=== PATIENT | male | born 1940 | race Caucasian/White ===

== ENCOUNTER 2020-06-03 07:28 | Day surgery (SDC) | payer MEDICARE, MEDICAID ==
[~2020-06-03] VITALS: Ht 185.4 cm; Wt 80.6 kg
[2020-06-03] MEDS ORDERED: MIDAZolam 1mg/ml 10ml vial IV ONE (07:55)
[2020-06-03] MEDS ORDERED: glycopyrrolate 0.2mg/ml inj IV ONE (07:55)
[2020-06-03] MEDS ORDERED: fentaNYL/PF 50MCG/1 ML 2ML syringe IV ONE (07:55)
[2020-06-03] MEDS ORDERED: barium sulfate 450ml oral suspension ONE (08:00)
[2020-06-03 08:02] VITALS: BP 146/88
[2020-06-03] MEDS ORDERED: ISOS30TA6 PO (08:05)
[2020-06-03] MEDS ORDERED: NITR0.4T48 SL (08:05)
[2020-06-03] MEDS ORDERED: FURO20TA4 PO (08:05)
[2020-06-03] MEDS ORDERED: HYDR-3972 PO (08:05)
[2020-06-03] MEDS ORDERED: ROSU10TA28 PO (08:12)
[2020-06-03] MEDS ORDERED: CLON1PAT15 TOP (08:12)
[2020-06-03] MEDS ORDERED: HYDR-4070 PO (08:12)
[2020-06-03] MEDS ORDERED: METO-395 PO (08:12)
[2020-06-03] MEDS ORDERED: SPIR25TA5 PO (08:12)
[2020-06-03] MEDS ORDERED: FLO0.4C PO (08:12)
[2020-06-03] MEDS ORDERED: METH5TAB2 PO (08:12)
[2020-06-03] MEDS ORDERED: CLOP75TA35 PO (08:12)
[2020-06-03] MEDS ORDERED: FENT1PAT TOP (08:12)
[2020-06-03] MEDS ORDERED: CALC0.2536 PO (08:12)
[2020-06-03] MEDS ORDERED: CYCL-1 PO (08:12)
[2020-06-03] MEDS ORDERED: GABA-530 PO (08:12)
[2020-06-03] MEDS ORDERED: AMLO5TAB16 PO (08:12)
[2020-06-03] MEDS ORDERED: ASCO500C15 PO (08:14)
[2020-06-03] MEDS ORDERED: VITA400C67 PO (08:14)
[2020-06-03] MEDS ORDERED: CHOL10002 (08:14)
[2020-06-03 08:35] LABS: BASOPHILS % (AUTO) 0.7 % (0-1); EOSINOPHILS # (AUTO) 0.1 X10'3 (0-0.9); EOSINOPHILS % (AUTO) 2.3 % (0-6); HEMATOCRIT 29.3 % (42.0-52.0); HEMOGLOBIN 9.5 g/dl (14.0-17.9); LYMPHOCYTES # (AUTO) 0.9 X10'3 (1.1-4.8); LYMPHOCYTES % (AUTO) 17.5 % (21-51); MEAN CORPUSCULAR HEMOGLOBIN 29.7 PG (27.0-31.0); MEAN CORPUSCULAR HGB CONC 32.4 g/dL (33.0-36.5); MEAN CORPUSCULAR VOLUME 91.7 FL (78-98); MEAN PLATELET VOLUME 7.9 FL (7.4-10.4); MONOCYTES # (AUTO) 0.6 X10'3 (0-0.9); MONOCYTES % (AUTO) 11.2 % (2-12); NEUTROPHILS # (AUTO) 3.5 X10'3 (1.8-7.7); NEUTROPHILS % (AUTO) 68.3 % (42-75); PLATELET COUNT 129 X10'3 (140-440); RED BLOOD COUNT 3.19 X10'6 (4.70-6.10); RED CELL DISTRIBUTION WIDTH 16.4 % (11.5-14.5); WHITE BLOOD COUNT 5.1 X10'3 (4.5-11.0)
[2020-06-03 08:41] LABS: ALBUMIN 3.9 G/DL (3.4-5.0); ANION GAP 10 (8-16); BLOOD UREA NITROGEN 73 MG/DL (7-18); BUN/CREATININE RATIO 23.2 (5.4-32.0); CALCIUM 8.6 MG/DL (8.5-10.1); CHLORIDE 103 MMOL/L (99-107); CREATININE 3.15 MG/DL (0.60-1.10); GLUCOSE 91 MG/DL (70-104); MAGNESIUM 2.5 MG/DL (1.5-2.4); POTASSIUM 4.8 MMOL/L (3.5-5.1); SODIUM 140 MMOL/L (135-145); TOTAL CARBON DIOXIDE 27.1 MMOL/L (24-32); eGFR 19 ML/MIN
[2020-06-03] MEDS ORDERED: normal saline 1000ml 1,000 ML IV SCH (09:50)
[2020-06-03 10:58] VITALS: BP 129/67
--- NOTE | 2020-06-03 11:00 | NUR ---
was unable to complete LOUISE, sending PT for barium swallow study with Dr. Roe.
--- NOTE | 2020-06-03 11:51 | NUR ---
pt left floor for barium swallow study.
--- NOTE | 2020-06-03 12:20 | NUR ---
Pt back from swallow study. Pt in restroom.
--- NOTE | 2020-06-03 12:40 | NUR ---
Contacted . No new orders given. Pt to follow up with Dr. Marie per Dr. Floyd.
== END 2020-06-03 13:05 | disposition home or self-care (01) ==
LOC: SSTAY O 07:28
PROVIDERS: ATTEND Internal Medicine Cardiovascular Disease
DX: I48.3 Typical atrial flutter (principal); K22.4 Dyskinesia of esophagus; R06.02 Shortness of breath; I10 Essential (primary) hypertension; I45.10 Unspecified right bundle-branch block
CPT/HCPCS: 36415; 74220; 80048; 83735; 85025; 85610; 93005; 93308; J2250; J3010; J7030; J3490

== ENCOUNTER 2020-07-15 09:36 | Day surgery (SDC) | payer MEDICARE, MEDICAID ==
[2020-07-15] VITALS (12 sets, daily range): BP systolic 117–165; BP diastolic 77–87
[~2020-07-15] VITALS: Ht 185.4 cm; Wt 78.2 kg
[~2020-07-15 09:36] MED LIST: AMLO5TAB16 PO; ASCO500C15 PO; CALC0.2536 PO; CHOL10002; CLON1PAT15 TOP; CLOP75TA35 PO; CYCL-1 PO; FENT1PAT TOP; FLO0.4C PO; FURO20TA4 PO; GABA-530 PO; HYDR-3972 PO; HYDR-4070 PO; ISOS30TA6 PO; METH5TAB2 PO; METO-395 PO; NITR0.4T48 SL; ROSU10TA28 PO; SPIR25TA5 PO; VITA400C67 PO
[2020-07-15] MEDS ORDERED: normal saline 1000ml 1,000 ML IV SCH (10:05)
[2020-07-15] MEDS ORDERED: MIDAZolam 1mg/ml 10ml vial IV ONE ×2 (10:05→10:10)
[2020-07-15] MEDS ORDERED: fentaNYL/PF 50MCG/1 ML 2ML syringe IV ONE (10:05)
[2020-07-15] MEDS ORDERED: glycopyrrolate 0.2mg/ml inj IV ONE (10:10)
[2020-07-15] MEDS ORDERED: IRON PO (10:30)
[2020-07-15 11:00] LABS: BASOPHILS % (AUTO) 0.9 % (0-1); EOSINOPHILS # (AUTO) 0.1 X10'3 (0-0.9); EOSINOPHILS % (AUTO) 1.1 % (0-6); HEMATOCRIT 29.8 % (42.0-52.0); HEMOGLOBIN 9.9 g/dl (14.0-17.9); LYMPHOCYTES # (AUTO) 0.9 X10'3 (1.1-4.8); LYMPHOCYTES % (AUTO) 17.9 % (21-51); MEAN CORPUSCULAR HEMOGLOBIN 30.3 PG (27.0-31.0); MEAN CORPUSCULAR HGB CONC 33.1 g/dL (33.0-36.5); MEAN CORPUSCULAR VOLUME 91.5 FL (78-98); MEAN PLATELET VOLUME 8.7 FL (7.4-10.4); MONOCYTES # (AUTO) 0.6 X10'3 (0-0.9); MONOCYTES % (AUTO) 12.3 % (2-12); NEUTROPHILS # (AUTO) 3.5 X10'3 (1.8-7.7); NEUTROPHILS % (AUTO) 67.8 % (42-75); PLATELET COUNT 132 X10'3 (140-440); RED BLOOD COUNT 3.26 X10'6 (4.70-6.10); RED CELL DISTRIBUTION WIDTH 16.6 % (11.5-14.5); WHITE BLOOD COUNT 5.2 X10'3 (4.5-11.0)
[2020-07-15] MEDS ORDERED: LORazepam 2 mg/ml vial IV ONE (11:10)
[2020-07-15 11:15] LABS: ALBUMIN 4.5 G/DL (3.4-5.0); ANION GAP 13 (8-16); BLOOD UREA NITROGEN 65 MG/DL (7-18); BUN/CREATININE RATIO 23.6 (5.4-32.0); CALCIUM 9.1 MG/DL (8.5-10.1); CHLORIDE 107 MMOL/L (99-107); CREATININE 2.75 MG/DL (0.60-1.10); GLUCOSE 95 MG/DL (70-104); MAGNESIUM 2.4 MG/DL (1.5-2.4); POTASSIUM 3.9 MMOL/L (3.5-5.1); SODIUM 142 MMOL/L (135-145); TOTAL CARBON DIOXIDE 22.2 MMOL/L (24-32); eGFR 22 ML/MIN
[2020-07-15] MEDS ORDERED: nitroGLYCERIN 0.4mg SUBLingual tab SL ONE (11:47)
[2020-07-15] MEDS ORDERED: nitroGLYCERIN 0.4mg SUBLingual tab SL PRN (11:55)
--- NOTE | 2020-07-15 12:00 | NUR ---
Pt procedure will be rescheduled per MD. Unable to complete LOUISE, no cardioversion.
== END 2020-07-15 13:00 | disposition home or self-care (01) ==
LOC: CARD DIAG 09:36 → EDSTATUS 11:00 → SSTAY O 13:00
PROVIDERS: ATTEND Internal Medicine Cardiovascular Disease
DX: I48.92 Unspecified atrial flutter (principal); I07.1 Rheumatic tricuspid insufficiency; K22.8 Other specified diseases of esophagus; I12.9 Hypertensive chronic kidney disease with stage 1 through stage 4 chronic kidney disease, or unspecified chronic kidney disease; N18.9 Chronic kidney disease, unspecified; I25.10 Atherosclerotic heart disease of native coronary artery without angina pectoris; D64.9 Anemia, unspecified; I45.2 Bifascicular block; Z79.899 Other long term (current) drug therapy; Z95.2 Presence of prosthetic heart valve
CPT/HCPCS: 36415; 80048; 83735; 85025; 85610; 93005; 93312; J2250; J3010; J7030; 93308; J3490

== ENCOUNTER 2021-01-10 12:01 | Day surgery (SDC) | payer MEDICARE, MEDICAID ==
[~2021-01-10] VITALS: Ht 188 cm; Wt 86.0 kg
[2021-01-10] VITALS (23 sets, daily range): BP systolic 109–151; BP diastolic 58–80
[~2021-01-10 12:01] MED LIST changes: -ASCO500C15 PO; +ASCO500C18 PO; -CALC0.2536 PO; -CLON1PAT15 TOP; +CLOP75TA34 PO; -CLOP75TA35 PO; -CYCL-1 PO; -FENT1PAT TOP; -FLO0.4C PO; -HYDR-3972 PO; -HYDR-4070 PO; +IRON PO; -ISOS30TA6 PO; +ISOS30TA84 PO; -METH5TAB2 PO; -METO-395 PO; -ROSU10TA28 PO; -SPIR25TA5 PO
[2021-01-10] MEDS ORDERED: fentaNYL/PF 50MCG/1 ML 2ML syringe IV ONE (12:30)
[2021-01-10] MEDS ORDERED: normal saline 1000ml 1,000 ML IV SCH (12:30)
[2021-01-10] MEDS ORDERED: MIDAZolam 1mg/ml 10ml vial IV ONE (12:30)
[2021-01-10] MEDS ORDERED: FURO40TA4 PO (12:45)
[2021-01-10] MEDS ORDERED: ISOS30TA84 PO (12:48)
[2021-01-10 13:19] LABS: BASOPHILS % (AUTO) 0.8 % (0-1); EOSINOPHILS # (AUTO) 0.1 X10'3 (0-0.9); EOSINOPHILS % (AUTO) 2.8 % (0-6); HEMATOCRIT 27.6 % (42.0-52.0); LYMPHOCYTES # (AUTO) 0.7 X10'3 (1.1-4.8); LYMPHOCYTES % (AUTO) 15.6 % (21-51); MEAN CORPUSCULAR HGB CONC 32.4 g/dL (33.0-36.5); MEAN CORPUSCULAR VOLUME 95.4 FL (78-98); MEAN PLATELET VOLUME 9.9 FL (7.4-10.4); MONOCYTES # (AUTO) 0.6 X10'3 (0-0.9); MONOCYTES % (AUTO) 14.2 % (2-12); NEUTROPHILS # (AUTO) 2.9 X10'3 (1.8-7.7); NEUTROPHILS % (AUTO) 66.6 % (42-75); PLATELET COUNT 91 X10'3 (140-440); RED BLOOD COUNT 2.89 X10'6 (4.70-6.10); RED CELL DISTRIBUTION WIDTH 14.6 % (11.5-14.5); WHITE BLOOD COUNT 4.3 X10'3 (4.5-11.0)
[2021-01-10 13:29] LABS: ALBUMIN 3.6 G/DL (3.4-5.0); ANION GAP 16 (8-16); BLOOD UREA NITROGEN 71 MG/DL (7-18); BUN/CREATININE RATIO 25.9 (5.4-32.0); CALCIUM 8.3 MG/DL (8.5-10.1); CHLORIDE 111 MMOL/L (99-107); CREATININE 2.74 MG/DL (0.60-1.10); GLUCOSE 92 MG/DL (70-104); MAGNESIUM 2.3 MG/DL (1.5-2.4); POTASSIUM 3.9 MMOL/L (3.5-5.1); SODIUM 145 MMOL/L (135-145); TOTAL CARBON DIOXIDE 18.3 MMOL/L (24-32); eGFR 22 ML/MIN
[2021-01-10] MEDS ORDERED: amiodarone 150mg/dext, iso-os 100 ML IV ONE ×2 (14:50→15:30)
== END 2021-01-10 16:20 | disposition home or self-care (01) ==
LOC: SSTAY O 12:01
PROVIDERS: ATTEND Internal Medicine Cardiovascular Disease
DX: I48.91 Unspecified atrial fibrillation (principal); I08.1 Rheumatic disorders of both mitral and tricuspid valves; I25.10 Atherosclerotic heart disease of native coronary artery without angina pectoris; I12.9 Hypertensive chronic kidney disease with stage 1 through stage 4 chronic kidney disease, or unspecified chronic kidney disease; N18.9 Chronic kidney disease, unspecified; D64.9 Anemia, unspecified; Z95.2 Presence of prosthetic heart valve; Z98.890 Other specified postprocedural states; Z79.899 Other long term (current) drug therapy; Z79.01 Long term (current) use of anticoagulants
CPT/HCPCS: 36415; 80048; 83735; 85025; 85610; 92960; 93005; 93312; 93325; 94799; J2250; J3010; J7030